=== PATIENT | male | born 1950 | race Caucasian/White ===

== ENCOUNTER 2017-05-03 20:16 | Emergency (ER) | payer BC ==
[~2017-05-03] VITALS: Ht 167.6 cm; Wt 50.7 kg
[2017-05-03] MEDS ORDERED: LIDOCAINE 1%, 20ML INFIL ONE (20:30)
[2017-05-03] MEDS ORDERED: LIDOCAINE 1%, 20ML ONE (20:35)
[2017-05-03] MEDS ORDERED: BACITRACIN ZINC OINT 500U/GM, 0.9 GM ONE (20:49)
[2017-05-03] MEDS ORDERED: LIDOCAINE 1%, 20ML SQ ONE (21:00)
[2017-05-03 21:30] VITALS: BP 142/86
== END 2017-05-03 21:31 | disposition home or self-care (01) ==
LOC: ED 20:53
DX: S61.412A Laceration without foreign body of left hand, initial encounter (principal); W01.0XXA Fall on same level from slipping, tripping and stumbling without subsequent striking against object, initial encounter; Y93.01 Activity, walking, marching and hiking; Y99.8 Other external cause status; Y92.830 Public park as the place of occurrence of the external cause
CPT/HCPCS: 12002; 99283; J3490